=== PATIENT | male | born 1940 | race Caucasian/White ===

== ENCOUNTER 2017-09-16 08:06 | Day surgery (SDC) | payer OTHER ==
[2017-09-14 11:08] VITALS: BMI 36.6
[2017-09-16] MEDS ORDERED: PROPOFOL 20 ML ONE ×2 (08:11)
[2017-09-16 08:37] VITALS: TEMP 97.5
[2017-09-16 09:39] VITALS: PULSE 49
[2017-09-16 10:13] VITALS: BP 115/71
== END 2017-09-16 10:10 | disposition home or self-care (01) ==
LOC: FASU-ENDO 08:06
PROVIDERS: ATTEND Internal Medicine Gastroenterology
PROC: 0DJD8ZZ Inspection of Lower Intestinal Tract, Via Natural or Artificial Opening Endoscopic (ICD-10-PCS; principal; 2017-09-16 09:08)
DX: Z86.010 Personal history of colon polyps (principal)

== ENCOUNTER 2022-12-30 04:12 | Day surgery (SDC) | payer OTHER, BC ==
[2022-12-28 12:42] VITALS: BMI 35.5
[2022-12-30] MEDS ORDERED: ceFAZolin SODIUM 1 GM VIAL IVPB ONE (14:30)
[2022-12-30] MEDS ORDERED: PROPOFOL 20 ML ONE (14:41)
[2022-12-30] MEDS ORDERED: LACTATED RINGERS SOLUTION 1,000 ML IV SCH (15:45)
[2022-12-30] MEDS ORDERED: oxyCODONE HCL 5 MG TABLET ONE (16:42)
[2022-12-30] MEDS ORDERED: oxyCODONE HCL 5 MG TABLET PO PRN (18:49)
[2022-12-30 19:25] VITALS: RESP 16
[2022-12-30 19:27] VITALS: BP 133/62; PULSE 61; TEMP 96.9
== END 2022-12-30 19:20 | disposition home or self-care (01) ==
LOC: JASU-SURG 04:12
PROVIDERS: ATTEND Urology
PROC: 0TC78ZZ Extirpation of Matter from Left Ureter, Via Natural or Artificial Opening Endoscopic (ICD-10-PCS; principal; 2022-12-30 14:00)
PROC: 0T778DZ Dilation of Left Ureter with Intraluminal Device, Via Natural or Artificial Opening Endoscopic (ICD-10-PCS; 2022-12-30 14:00)
DX: N20.1 Calculus of ureter (principal)
CPT/HCPCS: 76000-TC-FY; 94760; C1747; C1758; C2617